=== PATIENT | male | born 1950 | race Caucasian/White ===

== ENCOUNTER 2019-06-16 09:54 | Outpatient (CLI) | payer MEDICARE | END 2019-06-16 23:59 | disposition home or self-care (01) | LOC: RAD 09:54 | PROVIDERS: ATTEND Specialist | DX: R05 Cough (principal) | CPT/HCPCS: 71046 ==

== ENCOUNTER 2019-06-20 11:10 | Outpatient (CLI) | payer MEDICARE | END 2019-06-20 23:59 | disposition home or self-care (01) | LOC: WOU 11:10 | PROVIDERS: ATTEND Podiatrist Foot & Ankle Surgery | DX: E11.621 Type 2 diabetes mellitus with foot ulcer (principal); L97.422 Non-pressure chronic ulcer of left heel and midfoot with fat layer exposed; L97.528 Non-pressure chronic ulcer of other part of left foot with other specified severity; S80.821A Blister (nonthermal), right lower leg, initial encounter; X58.XXXA Exposure to other specified factors, initial encounter; Y92.89 Other specified places as the place of occurrence of the external cause; E11.22 Type 2 diabetes mellitus with diabetic chronic kidney disease; E11.69 Type 2 diabetes mellitus with other specified complication; I13.2 Hypertensive heart and chronic kidney disease with heart failure and with stage 5 chronic kidney disease, or end stage renal disease; M86.672 Other chronic osteomyelitis, left ankle and foot; E11.52 Type 2 diabetes mellitus with diabetic peripheral angiopathy with gangrene; N18.6 End stage renal disease; I50.9 Heart failure, unspecified; Z99.2 Dependence on renal dialysis; Z79.4 Long term (current) use of insulin | CPT/HCPCS: 97605; A6253 ==

== ENCOUNTER 2019-06-27 09:15 | Emergency (ER) | payer MEDICARE ==
[~2019-06-27] VITALS: Ht 175.3 cm; Wt 79.4 kg
[2019-06-27] MEDS ORDERED: HYDR-4075 (09:22)
[2019-06-27] MEDS ORDERED: AMLO10TA4 (09:22)
--- NOTE | 2019-06-27 09:30 | NUR ---
Patient came in to the ER accompanied by , from wound center for high bp>200. On room air, breathing evenly and unlabored. connected to the monitor and pulse ox. Wound vac on the left leg. Will continue to monitor accordingly.
[2019-06-27 09:49] VITALS: BP 198/94
--- NOTE | 2019-06-27 09:50 | NUR ---
Patient discharged to home in stable condition. Written and verbal after care instructions given. Patient verbalizes understanding of instruction.
== END 2019-06-27 09:50 | disposition home or self-care (01) ==
LOC: ER 09:17
DX: I11.0 Hypertensive heart disease with heart failure (principal); I50.89 Other heart failure; E11.9 Type 2 diabetes mellitus without complications; Z79.899 Other long term (current) drug therapy

== ENCOUNTER 2019-06-28 11:31 | Outpatient (CLI) | payer MEDICARE ==
[~2019-06-28 11:31] MED LIST: AMLO10TA4; HYDR-4075
== END 2019-06-28 23:59 | disposition home or self-care (01) ==
LOC: WOU 11:31
PROVIDERS: ATTEND Podiatrist Foot & Ankle Surgery
DX: E11.621 Type 2 diabetes mellitus with foot ulcer (principal); L97.422 Non-pressure chronic ulcer of left heel and midfoot with fat layer exposed; L97.522 Non-pressure chronic ulcer of other part of left foot with fat layer exposed; I87.311 Chronic venous hypertension (idiopathic) with ulcer of right lower extremity; L97.812 Non-pressure chronic ulcer of other part of right lower leg with fat layer exposed; I87.2 Venous insufficiency (chronic) (peripheral); E11.22 Type 2 diabetes mellitus with diabetic chronic kidney disease; E11.69 Type 2 diabetes mellitus with other specified complication; E11.52 Type 2 diabetes mellitus with diabetic peripheral angiopathy with gangrene; I13.2 Hypertensive heart and chronic kidney disease with heart failure and with stage 5 chronic kidney disease, or end stage renal disease; M86.672 Other chronic osteomyelitis, left ankle and foot; N18.6 End stage renal disease; I50.9 Heart failure, unspecified; Z99.2 Dependence on renal dialysis; Z79.4 Long term (current) use of insulin
CPT/HCPCS: G0463

== ENCOUNTER 2019-07-04 10:06 | Outpatient (CLI) | payer MEDICARE | END 2019-07-04 23:59 | disposition home or self-care (01) | LOC: WOU 10:06 | PROVIDERS: ATTEND Podiatrist Foot & Ankle Surgery | DX: E11.621 Type 2 diabetes mellitus with foot ulcer (principal); L97.422 Non-pressure chronic ulcer of left heel and midfoot with fat layer exposed; L97.522 Non-pressure chronic ulcer of other part of left foot with fat layer exposed; L97.818 Non-pressure chronic ulcer of other part of right lower leg with other specified severity; E11.22 Type 2 diabetes mellitus with diabetic chronic kidney disease; E11.52 Type 2 diabetes mellitus with diabetic peripheral angiopathy with gangrene; E11.69 Type 2 diabetes mellitus with other specified complication; I13.2 Hypertensive heart and chronic kidney disease with heart failure and with stage 5 chronic kidney disease, or end stage renal disease; M86.672 Other chronic osteomyelitis, left ankle and foot; N18.6 End stage renal disease; I50.9 Heart failure, unspecified; Z99.2 Dependence on renal dialysis; Z79.4 Long term (current) use of insulin | CPT/HCPCS: A6253; G0463 ==

== ENCOUNTER 2019-07-06 23:01 | Emergency (ER) | payer MEDICARE ==
[~2019-07-06] VITALS: Ht 180.3 cm; Wt 74.8 kg
--- NOTE | 2019-07-06 23:19 | NUR ---
BIBS. SYNCOPAL EPISODE 2129 SLIPPED OFF THE TOILET. L HAND SKIN TEAR. NO HT. TO ER BED 3 AWAITIGN MED EVAL
--- NOTE | 2019-07-06 23:30 | NUR ---
PT TAKEN TO RADIOLOGY
[2019-07-06 23:36] LABS: BASOPHILS # (AUTO) 0.1 /CMM (0.0-0.2); BASOPHILS % (AUTO) 0.9 % (0.0-2.0); EOSINOPHILS % (AUTO) 4.5 % (0.0-6.0); HEMATOCRIT 35 % (39-51); HEMOGLOBIN 11.6 g/dL (13.5-17.5); LYMPHOCYTES # (AUTO) 1.1 /CMM (0.8-4.8); LYMPHOCYTES % (AUTO) 11.8 % (20.0-44.0); MEAN CORPUSCULAR HGB CONC 33 g/dl (31.0-36.0); MEAN CORPUSCULAR VOLUME 85 fL (80-96); MONOCYTES # (AUTO) 0.6 /CMM (0.1-1.30); MONOCYTES % (AUTO) 6.2 % (2.0-12.0); NEUTROPHILS # (AUTO) 7.1 /CMM (1.8-8.9); NEUTROPHILS % (AUTO) 76.6 % (43.0-81.0); PLATELET COUNT (AUTO) 255 /CMM (150-450); RED BLOOD CELL COUNT(AUTO) 4.14 MIL/uL (4.5-6.0); WHITE BLOOD COUNT (AUTO) 9.3 K/uL (4.3-11.0)
[2019-07-06 23:51] LABS: ALANINE AMINOTRANSFERASE 38 U/L (12-78); ALBUMIN 3.6 g/dL (3.4-5.0); ALKALINE PHOSPHATASE 148 U/L (46-116); ASPARTATE AMINOTRANSFERASE 26 U/L (15-37); BILIRUBIN,DIRECT 0.1 mg/dL (0.0-0.2); BILIRUBIN,TOTAL 0.5 mg/dL (0.2-1.0); CALCIUM, SERUM 10.6 mg/dL (8.5-10.1); CARBON DIOXIDE 27 mmol/L (21-32); CHLORIDE 96 mmol/L (98-107); CREATININE 5.8 mg/dL (0.6-1.3); GLUCOSE 211 mg/dL (74-106); POTASSIUM 4.6 mmol/L (3.5-5.1); SODIUM SERUM 136 mmol/L (136-145); TOTAL PROTEIN, SERUM 8.5 g/dL (6.4-8.2)
[2019-07-06 23:54] LABS: UREA NITROGEN, BLOOD 103 mg/dL (7-18)
[2019-07-07] MEDS ORDERED: IV NS 0.9% 500 ML BAG IV ONE
[2019-07-07 00:46] VITALS: BP 97/50
--- NOTE | 2019-07-07 00:46 | NUR ---
Patient discharged to home in stable condition. Written and verbal after care instructions given. Patient verbalizes understanding of instruction.
== END 2019-07-07 00:47 | disposition home or self-care (01) ==
LOC: ER 23:09
DX: S61.412A Laceration without foreign body of left hand, initial encounter (principal); R55 Syncope and collapse; E86.0 Dehydration; E11.22 Type 2 diabetes mellitus with diabetic chronic kidney disease; I13.2 Hypertensive heart and chronic kidney disease with heart failure and with stage 5 chronic kidney disease, or end stage renal disease; I50.9 Heart failure, unspecified; N18.6 End stage renal disease; F12.90 Cannabis use, unspecified, uncomplicated; Z99.2 Dependence on renal dialysis; Z79.899 Other long term (current) drug therapy; W18.39XA Other fall on same level, initial encounter; Y93.89 Activity, other specified; Y92.89 Other specified places as the place of occurrence of the external cause; Y99.8 Other external cause status
CPT/HCPCS: 36415; 70450; 71045; 80048; 80076; 82962; 84484; 85025; 93005; 99284; J7040

== ENCOUNTER 2019-07-11 12:30 | Outpatient (CLI) | payer MEDICARE | END 2019-07-11 23:59 | disposition home or self-care (01) | LOC: WOU 12:30 | PROVIDERS: ATTEND Podiatrist Foot & Ankle Surgery | DX: E11.621 Type 2 diabetes mellitus with foot ulcer (principal); L97.422 Non-pressure chronic ulcer of left heel and midfoot with fat layer exposed; L97.522 Non-pressure chronic ulcer of other part of left foot with fat layer exposed; L97.528 Non-pressure chronic ulcer of other part of left foot with other specified severity; L97.818 Non-pressure chronic ulcer of other part of right lower leg with other specified severity; E11.52 Type 2 diabetes mellitus with diabetic peripheral angiopathy with gangrene; E11.22 Type 2 diabetes mellitus with diabetic chronic kidney disease; E11.69 Type 2 diabetes mellitus with other specified complication; I13.2 Hypertensive heart and chronic kidney disease with heart failure and with stage 5 chronic kidney disease, or end stage renal disease; M86.672 Other chronic osteomyelitis, left ankle and foot; N18.6 End stage renal disease; I50.9 Heart failure, unspecified; Z99.2 Dependence on renal dialysis; Z79.4 Long term (current) use of insulin; S80.821D Blister (nonthermal), right lower leg, subsequent encounter; X58.XXXD Exposure to other specified factors, subsequent encounter | CPT/HCPCS: 11042 ==

== ENCOUNTER 2019-07-18 12:30 | Outpatient (CLI) | payer MEDICARE | END 2019-07-18 23:59 | disposition home or self-care (01) | LOC: WOU 12:30 | PROVIDERS: ATTEND Podiatrist Foot & Ankle Surgery | DX: E11.621 Type 2 diabetes mellitus with foot ulcer (principal); L97.422 Non-pressure chronic ulcer of left heel and midfoot with fat layer exposed; L97.522 Non-pressure chronic ulcer of other part of left foot with fat layer exposed; S80.821D Blister (nonthermal), right lower leg, subsequent encounter; X58.XXXD Exposure to other specified factors, subsequent encounter; E11.69 Type 2 diabetes mellitus with other specified complication; M86.672 Other chronic osteomyelitis, left ankle and foot; E11.22 Type 2 diabetes mellitus with diabetic chronic kidney disease; I13.2 Hypertensive heart and chronic kidney disease with heart failure and with stage 5 chronic kidney disease, or end stage renal disease; N18.6 End stage renal disease; I50.9 Heart failure, unspecified; Z99.2 Dependence on renal dialysis; Z79.4 Long term (current) use of insulin | CPT/HCPCS: A6253; G0463 ==

== ENCOUNTER 2019-07-20 12:02 | Outpatient (CLI) | payer MEDICARE | END 2019-07-20 23:59 | disposition home or self-care (01) | LOC: WOU 12:02 | PROVIDERS: ATTEND Specialist | DX: E11.621 Type 2 diabetes mellitus with foot ulcer (principal); L97.422 Non-pressure chronic ulcer of left heel and midfoot with fat layer exposed; L97.522 Non-pressure chronic ulcer of other part of left foot with fat layer exposed; L97.819 Non-pressure chronic ulcer of other part of right lower leg with unspecified severity; I87.2 Venous insufficiency (chronic) (peripheral); S86.012S Strain of left Achilles tendon, sequela; X58.XXXS Exposure to other specified factors, sequela; E11.52 Type 2 diabetes mellitus with diabetic peripheral angiopathy with gangrene; E11.69 Type 2 diabetes mellitus with other specified complication; M86.672 Other chronic osteomyelitis, left ankle and foot; E11.22 Type 2 diabetes mellitus with diabetic chronic kidney disease; I13.2 Hypertensive heart and chronic kidney disease with heart failure and with stage 5 chronic kidney disease, or end stage renal disease; I50.9 Heart failure, unspecified; N18.6 End stage renal disease; Z99.2 Dependence on renal dialysis; Z79.4 Long term (current) use of insulin | CPT/HCPCS: G0463 ==

== ENCOUNTER 2019-07-27 11:50 | Outpatient (CLI) | payer MEDICARE | END 2019-07-27 23:59 | disposition home or self-care (01) | LOC: WOU 11:50 | PROVIDERS: ATTEND Specialist | DX: E11.621 Type 2 diabetes mellitus with foot ulcer (principal); L97.422 Non-pressure chronic ulcer of left heel and midfoot with fat layer exposed; L97.522 Non-pressure chronic ulcer of other part of left foot with fat layer exposed; Z85.828 Personal history of other malignant neoplasm of skin; E11.22 Type 2 diabetes mellitus with diabetic chronic kidney disease; I13.11 Hypertensive heart and chronic kidney disease without heart failure, with stage 5 chronic kidney disease, or end stage renal disease; N18.6 End stage renal disease; Z99.2 Dependence on renal dialysis; Z79.4 Long term (current) use of insulin; E11.69 Type 2 diabetes mellitus with other specified complication; M86.672 Other chronic osteomyelitis, left ankle and foot; E11.52 Type 2 diabetes mellitus with diabetic peripheral angiopathy with gangrene | CPT/HCPCS: A6197; A6253; G0463 ==

== ENCOUNTER 2019-08-03 12:20 | Outpatient (CLI) | payer MEDICARE | END 2019-08-03 23:59 | disposition home or self-care (01) | LOC: WOU 12:20 | PROVIDERS: ATTEND Specialist | DX: E11.69 Type 2 diabetes mellitus with other specified complication (principal); M86.672 Other chronic osteomyelitis, left ankle and foot; E11.621 Type 2 diabetes mellitus with foot ulcer; L97.422 Non-pressure chronic ulcer of left heel and midfoot with fat layer exposed; L97.522 Non-pressure chronic ulcer of other part of left foot with fat layer exposed; Z86.31 Personal history of diabetic foot ulcer; E11.52 Type 2 diabetes mellitus with diabetic peripheral angiopathy with gangrene; Z99.2 Dependence on renal dialysis; E11.22 Type 2 diabetes mellitus with diabetic chronic kidney disease; I13.2 Hypertensive heart and chronic kidney disease with heart failure and with stage 5 chronic kidney disease, or end stage renal disease; I50.9 Heart failure, unspecified; N18.6 End stage renal disease; Z79.4 Long term (current) use of insulin | CPT/HCPCS: A6197; A6253; G0463 ==

== ENCOUNTER 2019-08-08 10:05 | Inpatient (IN) | payer MEDICARE ==
[~2019-08-08] VITALS: Ht 180.3 cm; Wt 70.5 kg
--- NOTE | 2019-08-08 10:15 | NUR ---
patient came in the ER, had a syncopal episode at home, c/o diarrhea x 3. On room air, breathing evenly and unlabored. connected to the monitor and pulse ox. kept comfortable, will continue to monitor accordingly.
[2019-08-08 10:28] LABS: BASOPHILS # (AUTO) 0.1 /CMM (0.0-0.2); EOSINOPHILS % (AUTO) 2.4 % (0.0-6.0); HEMATOCRIT 38 % (39-51); HEMOGLOBIN 12.6 g/dL (13.5-17.5); LYMPHOCYTES # (AUTO) 1.6 /CMM (0.8-4.8); MEAN CORPUSCULAR HGB CONC 34 g/dl (31.0-36.0); MEAN CORPUSCULAR VOLUME 87 fL (80-96); MONOCYTES # (AUTO) 0.9 /CMM (0.1-1.30); MONOCYTES % (AUTO) 7.9 % (2.0-12.0); NEUTROPHILS # (AUTO) 8.3 /CMM (1.8-8.9); NEUTROPHILS % (AUTO) 74.7 % (43.0-81.0); PLATELET COUNT (AUTO) 341 /CMM (150-450); RED BLOOD CELL COUNT(AUTO) 4.32 MIL/uL (4.5-6.0); WHITE BLOOD COUNT (AUTO) 11.1 K/uL (4.3-11.0)
[2019-08-08 10:41] LABS: CALCIUM, SERUM 9.7 mg/dL (8.5-10.1); CREATININE 6.6 mg/dL (0.6-1.3); POTASSIUM 4.2 mmol/L (3.5-5.1)
--- NOTE | 2019-08-08 10:55 | NUR ---
wheeled patient via gurney to ct scan
--- NOTE | 2019-08-08 11:03 | NUR ---
patient came back from CT
--- NOTE | 2019-08-08 11:26 | NUR ---
CALLED NURSING SUP FOR TELE BED.
--- NOTE | 2019-08-08 11:31 | NUR ---
NURSING SUP GAVE 306-1. MARILYN IS THE NURSE.
--- NOTE | 2019-08-08 11:48 | NUR ---
PAGED [facility].
[2019-08-08] MEDS ORDERED: LABE100T5 PO (12:15)
[2019-08-08] MEDS ORDERED: NATE120T6 PO (12:15)
[2019-08-08] MEDS ORDERED: TAMS-12 PO (12:15)
[2019-08-08] MEDS ORDERED: AMLO10TA4 PO (12:15)
[2019-08-08] MEDS ORDERED: FOLI0.8T2 PO (12:15)
[2019-08-08] MEDS ORDERED: HYDR-4076 PO (12:15)
[2019-08-08] MEDS ORDERED: AURYXIA PO (12:15)
--- NOTE | 2019-08-08 12:15 | NUR ---
report given to Sofie MARINELLI covering Denia MARINELLI for mone.
--- NOTE | 2019-08-08 12:44 | NUR ---
wheeled patient via gurney accopanied by EMT and RN in no distress. Denia RN at bedside to assume care.
--- NOTE | 2019-08-08 12:50 | NUR ---
Received patient awake alert and oriented , able to transfer from [facility] to bed with assistance. Patient on room air tolerating well, VS are stable. Patient able to provide health history. Patient adam any distress or pain at this time but complains of general weakness. Patient has dressing on left foot and his states that his is going to wound care clinic for treatment and dressing alva. Patient refused to take off dressing and take a picture of wound. Patient HD cath on right chest wall , no bleeding noted , dressing is clean. IV line to the LAC g 18 HL. Patient oriented to unit and room, educated to use call light. Will implement adm. orders.
[2019-08-08 13:00] VITALS: BP 111/54
[2019-08-08] MEDS ORDERED: MAG HYDROX/AL HYDROX/SIMETH 30 ML UDC PO PRN (13:00)
[2019-08-08] MEDS ORDERED: ACETAMINOPHEN 325 MG TABLET PO PRN (13:00)
[2019-08-08] MEDS ORDERED: MAGNESIUM HYDROXIDE 30 ML UDC PO PRN (13:00)
[2019-08-08] MEDS ORDERED: Z GUARD REMEDY 2 OZ OINT TP PRN (13:00)
[2019-08-08] MEDS ORDERED: ONDANSETRON HCL/PF 4 MG/2 ML VIAL IVP PRN (13:00)
[2019-08-08] MEDS ORDERED: Medication Not On Formulary EA (Nateglinide 120 MG) PO SCH (13:00)
[2019-08-08] MEDS ORDERED: DEXTROSE 50%-WATER 50 ML DISP.SYRIN IV PRN (13:00)
[2019-08-08] MEDS ORDERED: INSULIN REGULAR, HUMAN 100 UNIT/ML 3 ML VIAL SQ PRN (13:00)
[2019-08-08] MEDS ORDERED: HYDROCODONE/APAP 5/325MG 1 EACH TABLET PO PRN (13:00)
[2019-08-08 14:15] VITALS: BP_SYST 126; BP_SYST 136; BP_SYST 78; BP_DIAS 48; BP_DIAS 76; BP_DIAS 78
[2019-08-08 16:00] VITALS: BP 113/57
[2019-08-08] MEDS: hydrALAZINE HCL 25 MG TABLET PO SCH (17:00)
[2019-08-08 17:23] LABS: THYROID STIMULATING HORMONE 1.921 uIU/mL (0.358-3.74)
[2019-08-08] MEDS: ASPIRIN 81 MG TAB.CHEW PO SCH (17:24)
[2019-08-08] MEDS: ATORVASTATIN 10 MG TABLET PO SCH (17:24)
[2019-08-08] MEDS: LABETALOL HCL (100MG) 100 MG TABLET PO SCH (17:25)
[2019-08-08] MEDS: BLOOD SUGAR DIAGNOSTIC 1 EACH STRIP IN SCH ×2 (17:30→21:45)
[2019-08-08] MEDS ORDERED: HEPARIN SODIUM, PORCINE 5000 UNITS/1 ML VIAL IV ONE (18:30)
--- NOTE | 2019-08-08 18:30 | NUR ---
pt started on Heparin drip as ordered. rate is 1050 units/hr (21ml/hr). Another PTT /INR ordered . Patient educated on new med. Patient verbalized understanding.
[2019-08-08] MEDS: HEPARIN INFUSION/D5W 500 ML IV PRN (18:36)
--- NOTE | 2019-08-08 18:48 | NUR ---
Accu check is 200. Patient refused insulin, states he does not us insulin only oral meds at home. Will f/u with pharmacy
--- NOTE | 2019-08-08 19:15 | NUR ---
report given to Rao MARINELLI
--- NOTE | 2019-08-08 19:16 | NUR ---
GENERAL SURGEON OPENING NOTES Received patient A/O x4, awake on bed. On RA, no SOB/respiratory distress noted. Patient denies any discomfort at this time. On heparin drip, closely monitored accordingly. Instructed patient on the s/sx of bleeding and to report to HCP immediately, patient verbalized understanding. On tele monitor with A-flutter noted, patient denies any discomfort at this time. Kept on bed clean, dry and comfortable. Call light within easy reach. Will continue to monitor accordingly.
[2019-08-08 20:00] VITALS: BP_SYST 111; BP_SYST 118; BP_DIAS 58; BP_DIAS 69
[2019-08-09] VITALS: BP 105/57
[2019-08-09 04:00] VITALS: BP 126/67
--- NOTE | 2019-08-09 06:33 | NUR ---
TEACHER ASST CLOSING NOTES Patient asleep, easily awaken. On RA, no SOB/respiratory distress noted. On tele monitor with A-Flutter noted. No new complaints made within the shift. All nursing needs attended, due meds given as ordered. Still on Heparin drip, no change per heparin protocol. Kept on bed clean, dry and comfortable. On fall and aspiration precautions. Call light within easy reach. Endorsed.
[2019-08-09] MEDS: BLOOD SUGAR DIAGNOSTIC 1 EACH STRIP IN SCH ×3 (06:50→17:30)
[2019-08-09 07:20] LABS: BASOPHILS # (AUTO) 0.1 /CMM (0.0-0.2); EOSINOPHILS % (AUTO) 2.7 % (0.0-6.0); HEMATOCRIT 34 % (39-51); HEMOGLOBIN 11.4 g/dL (13.5-17.5); LYMPHOCYTES # (AUTO) 1.3 /CMM (0.8-4.8); LYMPHOCYTES % (AUTO) 15.1 % (20.0-44.0); MEAN CORPUSCULAR HGB CONC 33 g/dl (31.0-36.0); MEAN CORPUSCULAR VOLUME 86 fL (80-96); MONOCYTES # (AUTO) 0.7 /CMM (0.1-1.30); MONOCYTES % (AUTO) 8.1 % (2.0-12.0); NEUTROPHILS # (AUTO) 6.4 /CMM (1.8-8.9); NEUTROPHILS % (AUTO) 73.1 % (43.0-81.0); PLATELET COUNT (AUTO) 316 /CMM (150-450); RED BLOOD CELL COUNT(AUTO) 3.94 MIL/uL (4.5-6.0); WHITE BLOOD COUNT (AUTO) 8.8 K/uL (4.3-11.0)
[2019-08-09 07:33] LABS: ALBUMIN 2.5 g/dL (3.4-5.0); BILIRUBIN,TOTAL 0.5 mg/dL (0.2-1.0); CALCIUM, SERUM 8.5 mg/dL (8.5-10.1); MAGNESIUM 2.6 mg/dL (1.8-2.4); PHOSPHORUS 7.1 mg/dL (2.5-4.9); POTASSIUM 3.8 mmol/L (3.5-5.1); TOTAL PROTEIN, SERUM 6.5 g/dL (6.4-8.2)
[2019-08-09 07:36] LABS: CREATININE 7.6 mg/dL (0.6-1.3)
[2019-08-09 07:41] LABS: THYROID STIMULATING HORMONE 1.828 uIU/mL (0.358-3.74)
[2019-08-09 08:00] VITALS: BP 110/65
[2019-08-09] MEDS: HEPARIN INFUSION/D5W 500 ML IV PRN (08:26)
[2019-08-09] MEDS: ATORVASTATIN 10 MG TABLET PO SCH (08:51)
[2019-08-09] MEDS: hydrALAZINE HCL 25 MG TABLET PO SCH ×2 (08:53→17:00)
[2019-08-09] MEDS: LABETALOL HCL (100MG) 100 MG TABLET PO SCH ×2 (08:53→16:39)
[2019-08-09] MEDS: ASPIRIN 81 MG TAB.CHEW PO SCH (08:53)
[2019-08-09] MEDS ORDERED: TAMSULOSIN 0.4 MG CAP.SR.24H PO SCH (09:00)
[2019-08-09] MEDS ORDERED: VIT B CMPLX 3/FA/VIT C/BIOTIN 1 TAB TABLET PO SCH (09:00)
[2019-08-09] MEDS ORDERED: AMLODIPINE BESYLATE 10 MG TABLET PO SCH (09:00)
--- NOTE | 2019-08-09 09:15 | NUR ---
Heparin drip completed per Dr. Phillips order.
[2019-08-09] MEDS ORDERED: IOHEXOL-350 100 ML VIAL IV ONE (10:15)
[2019-08-09] MEDS ORDERED: IV NS 0.9% 250 ML IV ONE (10:16)
--- NOTE | 2019-08-09 10:23 | NUR ---
Patient picked up by radiology staff for CT angio Heart
[2019-08-09] MEDS ORDERED: NITROGLYCERIN 0.4 MG/TAB BOTTLE ONE (10:26)
[2019-08-09] MEDS ORDERED: IV NS 0.9% 500 ML IV SCH (10:30)
[2019-08-09] MEDS ORDERED: METOPROLOL TARTRATE INJ 5 MG/5 ML AMPUL IVP PRN (10:30)
[2019-08-09] MEDS ORDERED: DILTIAZEM HCL 25 MG IV ONE (10:49)
[2019-08-09] MEDS ORDERED: DILTIAZEM HCL 50 MG IV IV ONE (11:00)
[2019-08-09] MEDS ORDERED: NITROGLYCERIN 0.4 MG/TAB BOTTLE SL ONE (11:00)
--- NOTE | 2019-08-09 11:21 | NUR ---
ct angio heart done..pt tolerated well..report to adi lamb..back to room
[2019-08-09] MEDS ORDERED: ASPI-1169 PO (14:20)
[2019-08-09] MEDS ORDERED: APIX5TAB PO (14:20)
[2019-08-09 16:00] VITALS: BP_SYST 106; BP_SYST 123; BP_DIAS 67; BP_DIAS 68
--- NOTE | 2019-08-09 16:20 | NUR ---
Bedside HD done with no output . Patient tolerated well. VS are stable
[2019-08-09 16:42] VITALS: BP 106/67
[2019-08-09 17:00] VITALS: BP 106/67
[2019-08-09] MEDS ORDERED: APIXABAN 2.5 MG TABLET PO SCH (17:00)
[2019-08-09] MEDS ORDERED: APIXABAN 5 MG TABLET PO SCH (17:00)
--- NOTE | 2019-08-09 18:28 | NUR ---
Patient cleared for d/c home by MD and staffing mgr. Patient alert oriented x4 , breathing unlabored and even on room air with saturation above 95%. Patient denies any discomfort. All needs attended. Left foot dressing changed by wound care nurse Deloris. D/C instructions provided; including education on new prescribed med. Patient verbalized understanding and will f/u with PCP in one week. Patient sighed d/c instructions and valuable form and all belongings with the patient including own wheelchair. Pictures of the left wound done today by wound care nurse Deloris and placed in the pt's chart. IV line removed with no bleeding noted. ID wrist band removed. Patient picked up by and safely transferred via wheelchair accompanied by nurse.
[2019-08-10 07:10] LABS: PTH, INTACT 47 pg/mL (15-65)
--- NOTE | 2019-08-10 10:05 | NUR ---
PIPE STRESS ENGINEER NOTE LATE ENTRY FOR 08/09/19. DRESSING CHANGE TO PATIENT HEEL WOUND PERFORMED BY [facility] PER [facility] ORDERS PER DR PEREZ, PT TOLERATED PROCEDURE WELL.
[2019-08-10 11:07] LABS: *SPE A/G RATIO 0.8 (0.7-1.7); *SPE ALBUMIN 2.7 g/dL (2.9-4.4); *SPE ALPHA-1-GLOBULIN 0.3 g/dL (0.0-0.4); *SPE ALPHA-2-GLOBULIN 0.8 g/dL (0.4-1.0); *SPE BETA GLOBULIN 0.8 g/dL (0.7-1.3); *SPE GLOBULIN, TOTAL 3.2 g/dL (2.2-3.9); *SPE M-SPIKE Not Observed g/dL (Not Observed); *SPEGAMMA GLOBULIN 1.2 g/dL (0.4-1.8)
== END 2019-08-09 18:25 | disposition home or self-care (01) | DRG 280 ==
LOC: ER 10:08 → TELE 11:56 → MED 08-09 11:07
PROVIDERS: ADMIT Nurse Practitioner Acute Care
PROC: 5A1D70Z Performance of Urinary Filtration, Intermittent, Less than 6 Hours Per Day (ICD-10-PCS; principal; 2019-08-09)
DX: I95.1 Orthostatic hypotension (principal); I21.A1 Myocardial infarction type 2; N18.6 End stage renal disease; I12.0 Hypertensive chronic kidney disease with stage 5 chronic kidney disease or end stage renal disease; I48.92 Unspecified atrial flutter; E87.1 Hypo-osmolality and hyponatremia; L97.429 Non-pressure chronic ulcer of left heel and midfoot with unspecified severity; G90.8 Other disorders of autonomic nervous system; A08.4 Viral intestinal infection, unspecified; E11.22 Type 2 diabetes mellitus with diabetic chronic kidney disease; I48.91 Unspecified atrial fibrillation; H70.90 Unspecified mastoiditis, unspecified ear; F12.90 Cannabis use, unspecified, uncomplicated; E78.5 Hyperlipidemia, unspecified; E11.65 Type 2 diabetes mellitus with hyperglycemia; E11.621 Type 2 diabetes mellitus with foot ulcer; E11.51 Type 2 diabetes mellitus with diabetic peripheral angiopathy without gangrene; E11.40 Type 2 diabetes mellitus with diabetic neuropathy, unspecified; D64.9 Anemia, unspecified; N40.0 Benign prostatic hyperplasia without lower urinary tract symptoms; Z99.2 Dependence on renal dialysis; Z83.3 Family history of diabetes mellitus; Z82.49 Family history of ischemic heart disease and other diseases of the circulatory system; Z79.899 Other long term (current) drug therapy
CPT/HCPCS: 36415; 70450-TC; 71045-TC; 75574; 80048-TC; 80053-TC; 80061-TC; 82962-TC; 83735-TC; 83970; 84100-TC; 84155; 84165; 84439-TC; 84443-TC; 84484-TC; 85025-TC; 85610-TC; 85730-TC; 86704; 86706; 87081-TC; 87340; 90935-TC; 93307-TC; 93880-TC; A6197; A6253; G0378; J1644; J1815; J2405; J3490; J7040; J7050; Q9967

== ENCOUNTER 2019-08-17 11:49 | Outpatient (CLI) | payer MEDICARE ==
[~2019-08-17 11:49] MED LIST changes: -AMLO10TA4; +AMLO10TA4 PO; +APIX5TAB PO; +ASPI-1169 PO; +AURYXIA PO; +FOLI0.8T2 PO; -HYDR-4075; +HYDR-4076 PO; +LABE100T5 PO; +NATE120T6 PO; +TAMS-12 PO
== END 2019-08-17 23:59 | disposition home or self-care (01) ==
LOC: WOU 11:49
PROVIDERS: ATTEND Specialist
DX: E11.621 Type 2 diabetes mellitus with foot ulcer (principal); L97.422 Non-pressure chronic ulcer of left heel and midfoot with fat layer exposed; L97.528 Non-pressure chronic ulcer of other part of left foot with other specified severity; E11.69 Type 2 diabetes mellitus with other specified complication; M86.672 Other chronic osteomyelitis, left ankle and foot; E11.52 Type 2 diabetes mellitus with diabetic peripheral angiopathy with gangrene; Z99.2 Dependence on renal dialysis; Z86.31 Personal history of diabetic foot ulcer; E11.22 Type 2 diabetes mellitus with diabetic chronic kidney disease; I13.2 Hypertensive heart and chronic kidney disease with heart failure and with stage 5 chronic kidney disease, or end stage renal disease; I50.9 Heart failure, unspecified; N18.6 End stage renal disease
CPT/HCPCS: 11042; A6197; A6253

== ENCOUNTER 2019-10-05 09:20 | Outpatient (CLI) | payer MEDICARE | END 2019-10-05 23:59 | disposition home health service (06) | LOC: WOU 09:20 | PROVIDERS: ATTEND Specialist | DX: E11.621 Type 2 diabetes mellitus with foot ulcer (principal); L97.422 Non-pressure chronic ulcer of left heel and midfoot with fat layer exposed; E11.69 Type 2 diabetes mellitus with other specified complication; E11.22 Type 2 diabetes mellitus with diabetic chronic kidney disease; I13.2 Hypertensive heart and chronic kidney disease with heart failure and with stage 5 chronic kidney disease, or end stage renal disease; N18.6 End stage renal disease; I50.9 Heart failure, unspecified; Z99.2 Dependence on renal dialysis; M86.672 Other chronic osteomyelitis, left ankle and foot; Z79.84 Long term (current) use of oral hypoglycemic drugs | CPT/HCPCS: 82962; G0463; A6209 ==

== ENCOUNTER 2019-10-12 11:34 | Outpatient (CLI) | payer MEDICARE | END 2019-10-12 23:59 | disposition home or self-care (01) | LOC: WOU 11:34 | PROVIDERS: ATTEND Specialist | DX: E11.621 Type 2 diabetes mellitus with foot ulcer (principal); L97.422 Non-pressure chronic ulcer of left heel and midfoot with fat layer exposed; E11.22 Type 2 diabetes mellitus with diabetic chronic kidney disease; E11.69 Type 2 diabetes mellitus with other specified complication; I13.2 Hypertensive heart and chronic kidney disease with heart failure and with stage 5 chronic kidney disease, or end stage renal disease; M86.672 Other chronic osteomyelitis, left ankle and foot; N18.6 End stage renal disease; I50.9 Heart failure, unspecified; Z99.2 Dependence on renal dialysis; Z79.84 Long term (current) use of oral hypoglycemic drugs | CPT/HCPCS: G0463 ==

== ENCOUNTER 2019-10-19 11:25 | Outpatient (CLI) | payer MEDICARE | END 2019-10-19 23:59 | disposition home or self-care (01) | LOC: WOU 11:25 | PROVIDERS: ATTEND Specialist | DX: E11.621 Type 2 diabetes mellitus with foot ulcer (principal); L97.422 Non-pressure chronic ulcer of left heel and midfoot with fat layer exposed; E11.22 Type 2 diabetes mellitus with diabetic chronic kidney disease; E11.69 Type 2 diabetes mellitus with other specified complication; I13.2 Hypertensive heart and chronic kidney disease with heart failure and with stage 5 chronic kidney disease, or end stage renal disease; I50.9 Heart failure, unspecified; M86.672 Other chronic osteomyelitis, left ankle and foot; N18.6 End stage renal disease; Z99.2 Dependence on renal dialysis; Z79.84 Long term (current) use of oral hypoglycemic drugs | CPT/HCPCS: G0463 ==

== ENCOUNTER 2019-10-26 11:20 | Outpatient (CLI) | payer MEDICARE | END 2019-10-26 23:59 | disposition home or self-care (01) | LOC: WOU 11:20 | PROVIDERS: ATTEND Specialist | DX: E11.621 Type 2 diabetes mellitus with foot ulcer (principal); L97.429 Non-pressure chronic ulcer of left heel and midfoot with unspecified severity; E11.22 Type 2 diabetes mellitus with diabetic chronic kidney disease; E11.69 Type 2 diabetes mellitus with other specified complication; I13.2 Hypertensive heart and chronic kidney disease with heart failure and with stage 5 chronic kidney disease, or end stage renal disease; M86.672 Other chronic osteomyelitis, left ankle and foot; N18.6 End stage renal disease; I50.9 Heart failure, unspecified; Z99.2 Dependence on renal dialysis; Z79.84 Long term (current) use of oral hypoglycemic drugs; Z79.899 Other long term (current) drug therapy | CPT/HCPCS: G0463 ==

== ENCOUNTER 2019-10-31 11:31 | Emergency (ER) | payer MEDICARE ==
[~2019-10-31] VITALS: Ht 180.3 cm; Wt 64.4 kg
[2019-10-31 11:55] LABS: BASOPHILS # (AUTO) 0.1 /CMM (0.0-0.2); BASOPHILS % (AUTO) 1.2 % (0.0-2.0); EOSINOPHILS % (AUTO) 6.5 % (0.0-6.0); HEMATOCRIT 45 % (39-51); HEMOGLOBIN 14.7 g/dL (13.5-17.5); MEAN CORPUSCULAR HGB CONC 33 g/dl (31.0-36.0); MEAN CORPUSCULAR VOLUME 88 fL (80-96); MONOCYTES # (AUTO) 0.6 /CMM (0.1-1.30); MONOCYTES % (AUTO) 7.3 % (2.0-12.0); NEUTROPHILS # (AUTO) 5.5 /CMM (1.8-8.9); PLATELET COUNT (AUTO) 211 /CMM (150-450); RED BLOOD CELL COUNT(AUTO) 5.12 MIL/uL (4.5-6.0); WHITE BLOOD COUNT (AUTO) 7.6 K/uL (4.3-11.0)
[2019-10-31] MEDS ORDERED: IV NS 0.9% 1,000 ML BAG IV ONE (12:00)
--- NOTE | 2019-10-31 12:02 | NUR ---
BIBS TO ER BED 6. AAOX4. NOT IN RESP DISTRESS. AMBULATES WITH A WHEELCHAIR. CAME IN FOR MULTIPLE EPISODE OF DIARRHEA AND WEAKNESS. PER PT HE HAS BEEN HAVING MULTIPLE EPISODES OF WATTERY DIARRHEA SINCE THURSDAY. TODAY PT REPORTS HE WAS FEELING WEAK THAT HE FELL ON HIS KNEES. DENIES KO. DENIES HT. PT'S SKIN IS DRY. PT NOTED WITH A LEFT FOOT CAST. MD WAS AT BEDSIDE. IV LINE ON L AC 18G. BLOOD DRAWN AND GIEN TO HUMAN RESOURCES HR REPRESENTATIVE
[2019-10-31 12:07] LABS: ALANINE AMINOTRANSFERASE 57 U/L (12-78); ALBUMIN 3.3 g/dL (3.4-5.0); ALKALINE PHOSPHATASE 141 U/L (46-116); ASPARTATE AMINOTRANSFERASE 24 U/L (15-37); BILIRUBIN,DIRECT 0.1 mg/dL (0.0-0.2); BILIRUBIN,TOTAL 0.6 mg/dL (0.2-1.0); CALCIUM, SERUM 9.5 mg/dL (8.5-10.1); CARBON DIOXIDE 25 mmol/L (21-32); CHLORIDE 97 mmol/L (98-107); CREATININE 7.1 mg/dL (0.6-1.3); GLUCOSE 207 mg/dL (74-106); POTASSIUM 4.4 mmol/L (3.5-5.1); SODIUM SERUM 135 mmol/L (136-145); TOTAL PROTEIN, SERUM 7.7 g/dL (6.4-8.2)
[2019-10-31 12:09] LABS: UREA NITROGEN, BLOOD 101 mg/dL (7-18)
--- NOTE | 2019-10-31 13:13 | NUR ---
Patient discharged to home in stable condition. Written and verbal after care instructions given. Patient verbalizes understanding of instruction.IV removed. Catheter intact and site benign. Pressure and 4x4 applied to site. No bleeding noted. Pt left on a wheelchair and picked up by the .
[2019-10-31 13:17] VITALS: BP 175/83
== END 2019-10-31 13:17 | disposition home or self-care (01) ==
LOC: ER 11:35
DX: I13.2 Hypertensive heart and chronic kidney disease with heart failure and with stage 5 chronic kidney disease, or end stage renal disease (principal); E11.22 Type 2 diabetes mellitus with diabetic chronic kidney disease; N18.6 End stage renal disease; I50.9 Heart failure, unspecified; R19.7 Diarrhea, unspecified; F12.90 Cannabis use, unspecified, uncomplicated; Z79.82 Long term (current) use of aspirin; Z79.899 Other long term (current) drug therapy
CPT/HCPCS: 36415; 71045; 80048; 80076; 84484; 85025; 93005; 96360; 99285; J7030